=== PATIENT | female | born 1950 | race Caucasian/White ===

== ENCOUNTER 2023-09-10 12:05 | Outpatient (RCR) | payer MEDICARE, OTHER, SELFPAY | END 2023-09-10 23:59 | disposition home or self-care (01) | LOC: RPT 12:05 | PROVIDERS: ATTENDING PHYSICIAN Family Medicine | DX: N39.3 Stress incontinence (female) (male) (principal); N39.44 Nocturnal enuresis; K59.00 Constipation, unspecified; M62.89 Other specified disorders of muscle; Z73.6 Limitation of activities due to disability | CPT/HCPCS: 97110; 97112; 97140; 97530 ==

== ENCOUNTER 2023-10-22 12:14 | Outpatient (RCR) | payer MEDICARE, OTHER, SELFPAY | END 2023-10-22 23:59 | disposition home or self-care (01) | LOC: RPT 12:14 | PROVIDERS: ATTENDING PHYSICIAN Family Medicine | DX: N39.3 Stress incontinence (female) (male) (principal); N39.44 Nocturnal enuresis; K59.00 Constipation, unspecified; M62.89 Other specified disorders of muscle | CPT/HCPCS: 97112; 97140; 97530 ==

== ENCOUNTER → 2023-10-30 13:42 | Outpatient (REF) | payer MEDICARE, OTHER, SELFPAY | LOC: HWRAD 13:42 | PROVIDERS: ATTENDING PHYSICIAN Surgery; FAMILY PHYSICIAN Family Medicine | DX: R10.84 Generalized abdominal pain (principal) | CPT/HCPCS: 74177; Q9967 ==

== ENCOUNTER 2023-11-27 12:53 | Outpatient (RCR) | payer MEDICARE, OTHER, SELFPAY | END 2023-11-27 23:59 | disposition home or self-care (01) | LOC: RPT 12:53 | PROVIDERS: ATTENDING PHYSICIAN Family Medicine | DX: N39.3 Stress incontinence (female) (male) (principal); N39.44 Nocturnal enuresis; K59.00 Constipation, unspecified; M62.89 Other specified disorders of muscle; Z73.6 Limitation of activities due to disability | CPT/HCPCS: 97014; 97140; 97530 ==

== ENCOUNTER 2023-12-18 13:08 | Outpatient (RCR) | payer MEDICARE, OTHER, SELFPAY | END 2023-12-18 23:59 | disposition home or self-care (01) | LOC: RPT 13:08 | PROVIDERS: ATTENDING PHYSICIAN Family Medicine | DX: N39.3 Stress incontinence (female) (male) (principal); N39.44 Nocturnal enuresis; K59.00 Constipation, unspecified; M62.89 Other specified disorders of muscle; Z73.6 Limitation of activities due to disability | CPT/HCPCS: 97014; 97112; 97140; 97530 ==

== ENCOUNTER 2024-01-24 12:02 | Outpatient (RCR) | payer MEDICARE, OTHER, SELFPAY | END 2024-01-24 23:59 | disposition home or self-care (01) | LOC: RPT 12:02 | PROVIDERS: ATTENDING PHYSICIAN Family Medicine | DX: N39.44 Nocturnal enuresis (principal); M62.89 Other specified disorders of muscle; K59.00 Constipation, unspecified; Z73.6 Limitation of activities due to disability | CPT/HCPCS: 97112; 97140; 97530 ==

== ENCOUNTER 2024-02-21 12:33 | Outpatient (RCR) | payer MEDICARE, OTHER, SELFPAY | END 2024-02-21 23:59 | disposition home or self-care (01) | LOC: RPT 12:33 | PROVIDERS: ATTENDING PHYSICIAN Family Medicine | DX: N39.3 Stress incontinence (female) (male) (principal); K59.00 Constipation, unspecified; N39.44 Nocturnal enuresis; M62.89 Other specified disorders of muscle; Z73.6 Limitation of activities due to disability | CPT/HCPCS: 97530 ==

== ENCOUNTER → 2024-03-06 15:34 | Outpatient (REF) | payer MEDICARE, OTHER, SELFPAY | LOC: WDC 15:34 | PROVIDERS: ATTENDING PHYSICIAN Obstetrics & Gynecology; FAMILY PHYSICIAN Family Medicine | DX: Z12.31 Encounter for screening mammogram for malignant neoplasm of breast (principal) | CPT/HCPCS: 77063; 77067 ==

== ENCOUNTER → 2024-05-19 07:05 | Outpatient (REF) | payer MEDICARE, OTHER, SELFPAY ==
[2024-05-19 09:41] LABS: % Basophils 0.6 % (0-2); % Eosinophils 3.2 % (0-6); % Immature Granulocytes 0.3 % (0-0.5); % Lymphocytes 25.9 % (20.5-51.1); Absolute Eosinophils 0.2 10^3/uL (0-0.7); Absolute Lymphocytes 1.6 10^3/uL (1.2-3.4); Absolute Monocytes 0.7 10^3/uL (0.1-0.6); Absolute Neutrophils 3.7 10^3/uL (1.4-6.5); Mean Corp Hgb Conc. 34.3 g/dL (33.0-37.0); Mean Corpuscular Hgb 32.1 pg (27.0-31.0); Mean Corpuscular Volume 93.6 fL (81.0-99.0); Mean Platelet Volume 9.8 fL (7.4-10.4); Nucleated Red Blood Cells % 0 %; Platelet Count 270 10^3/uL (130-400); Red Blood Cell Count 3.74 10^6/uL (4.20-5.40); Red Cell Dist. Width 13.2 % (11.5-14.5); White Blood Cell Count 6.3 10^3/uL (4.8-10.8)
[2024-05-19 10:16] LABS: ALT (SGPT) 25 U/L (0-35); AST (SGOT) 28 U/L (14-36); Albumin 3.9 g/dl (3.5-5.0); Alkaline Phosphatase 81 U/L (38-126); Blood Urea Nitrogen 14 mg/dl (7-17); Calcium 9.3 mg/dl (8.4-10.2); Carbon Dioxide 25 mmol/L (22-30); Chloride 106 mmol/L (98-107); Glucose 89 mg/dl (70-99); HDL Cholesterol 82 mg/dl; LDL Cholesterol, Calculated 82 mg/dl; Potassium 4.2 mmol/L (3.5-5.1); Sodium 139 mmol/L (135-145); Total Bilirubin 0.7 mg/dl (0.2-1.3); Total Cholesterol 177 mg/dl (50-199); Total Protein 6.1 g/dl (6.3-8.2); Triglyceride 66 mg/dl (10-149); Very Low Density Lipoprotein 13 mg/dl (0-30); eGFR > 60.00
[2024-05-19 10:43] LABS: TSH Reflex To Free T4 0.86 uIU/ml (0.47-4.68)
== END ==
LOC: REG 07:05
PROVIDERS: ATTENDING PHYSICIAN Family Medicine
DX: E03.9 Hypothyroidism, unspecified (principal); E78.5 Hyperlipidemia, unspecified; R53.83 Other fatigue
CPT/HCPCS: 36415; 80053; 80061; 84443; 85025

== ENCOUNTER → 2024-06-17 10:33 | Outpatient (REF) | payer MEDICARE, OTHER, SELFPAY | LOC: RAD 10:33 | PROVIDERS: ATTENDING PHYSICIAN Family Medicine | DX: Z78.0 Asymptomatic menopausal state (principal) | CPT/HCPCS: 77080 ==

== ENCOUNTER 2025-02-05 08:08 | Emergency (ER) | payer MEDICARE, OTHER, SELFPAY ==
[2025-02-05 08:20] VITALS: BP 144/92
--- NOTE | 2025-02-05 08:44 | ED.GENMED ---
History of Present Illness
General
Chief Complaint: Musculo-Skeletal Complaint
Source: patient
Exam Limitations: none
Time Seen by Provider: 02/05/25 08:38
Nursing documentation reviewed up to this point in time: agreed with
History of Present Illness
History of Present Illness:
Patient is a 74-year-old female who presents to the ER for evaluation. Patient noticed swelling to right inner ankle last night. She reports 2 days ago she got back from a very long trip to [facility]. She reports it was approximately 13-14-hour
flight. She denies any actual injury. She does feel the area is sore however the swelling is better compared to yesterday. She was concerned about DVT. She denies any fever chills redness.
Past History
Past History
ED Past Medical History: Other (Chronic lung disease)
ED Past Surgical History: Tonsilectomy and Other (left breast benign lesion resected 1994, herniorrhaphy 2003, eyelid surgery 2020)
Social History
Tobacco: Non-smoker
Alcohol: None
Drug: None
Personal:
Living: with family
Family History
Family History: Other (reviewed and non-contributory)
Review of Systems
Review of Systems
Allergies reviewed?: Yes
All Other Systems: ROS reviewed and negative except as documented in HPI and ROS
Constitutional: Reports no symptoms
Respiratory: Reports no symptoms; Denies trouble breathing
Musculoskeletal: Reports other (right lower leg discomfort/swelling )
Skin: Reports no symptoms
Psychiatric: Reports no symptoms
Phy Exam
General Physical Exam
General Presentation: no apparent distress
General age: appears stated age
General Skin: warm and dry
General Habitus: normal
General Mental: alert
General Hydration: appears well hydrated
Neurological Exam
Neurological Exam: alert and oriented x3
Musculoskeletal Exam
Musculoskeletal Exam: full ROM and other (No obvious swelling to right lower leg + strong pulses no erythema or redness no calf tenderness )
Skin Exam
Skin Exam: normal color and warm/dry
Psychiatric Exam
Psychiatric Exam: normal mood/affect
Course
Orders/Labs/Results
Orders:
Orders
02/05/25 08:56
Venous Doppler Lwr Ext Rt [US Periph Venous LOWER Ext RT] Urgent
Comment:
Reason For Exam: pain/swelling
Vital Signs
Initial and Last Documented VS:
Initial Vital Signs
Pulse Resp BP Pulse Ox
90 18 144/92 96
02/05/25 08:20 02/05/25 08:20 02/05/25 08:20 02/05/25 08:20
Last Documented Vital Signs
Pulse Resp BP Pulse Ox
90 18 144/92 96
02/05/25 08:20 02/05/25 08:20 02/05/25 08:20 02/05/25 08:20
MDM/Problems Addressed
Differential Diagnosis Includes:
Not limited to DVT, dependent edema
MDM/Problems Addressed:
Patient is a 74-year-old female who presents with complaints of lower extremity swelling. Patient noticed swelling to the right ankle area. She recently was traveling a very long flight. On exam she has no obvious swelling. No evidence of
infection no erythema or tenderness.
Patient denies any fevers ultrasound negative for DVT possible dependent edema that has since resolved discussed close outpatient follow-up with family doctor to ensure that symptoms continue to be resolved.
*Radiology
Radiology exam reviewed: radiology read reviewed
*Pulse Oximetry
Patient hypoxic: no
*Critical Care Note
Total Time (30-74mins, 75-104mins- exclusive of procedures): Not Applicable
ED Attending Note
-
Portions of this chart may have been created with voice recognition software.� Occasional wrong word or��sound alike� substitutions may have occurred due to the inherent limitations of voice recognition software.
Discharge Plan
Departure
Patient Disposition: Home (Routine Discharge)
Date of Disposition: 02/05/25
Time of Disposition: 11:47
Patient with high blood pressure during this ER visit?: Yes
Condition: Fair
Covid-19: Not Applicable
Discharge Problem:
Leg swelling
Instructions: BLOOD PRESSURE
Prescriptions:
No Action
calcium carbonate [Calcium 600] 600 MG tablet
1,200 mg PO DAILY
montelukast 10 MG tablet
10 mg PO QPM
levothyroxine 88 MCG tablet
88 mcg PO DAILY
desloratadine [Clarinex] 5 MG tablet
5 mg PO DAILY
simvastatin 20 MG tablet
20 mg PO DAILY
omeprazole 20 MG capsule,delayed release(DR/EC)
20 mg PO DAILY
magnesium oxide 500 MG capsule
500 mg PO QPM
rizatriptan 10 MG tablet,disintegrating
10 mg PO PRN PRN (Reason: migraines)
albuterol sulfate 1 PUFF HFA aerosol inhaler
2 puff inhalation R Q6HPRN PRN (Reason: asthma)
Patient Comments:
pt states she hasn't used in months
fluticasone propionate 1 SPRAY spray,suspension
1 spray intranasal DAILY
fluticasone furoate-vilanterol [Breo Ellipta] 1 EACH blister with device
1 puff inhalation R DAILY Qty: 0
prednisone 10 MG tablet
10 mg PO .TAPER
Patient Comments:
11/23/2021: 5 tabs x 2 days, 4 tabs x 2 days, 3 tabs x 2 days, 2 tabs x 2 days, 1 tab x 2 days
doxycycline hyclate 100 MG capsule
100 mg PO Q12
albuterol sulfate 2.5 MG/3 ML solution for nebulization
2.5 mg inhalation R Q4HPRN PRN (Reason: sob/wheezing)
sodium chloride [NebuSal] 4 ML solution for nebulization
4 ml inhalation R BID
Referrals:
Steffanie Solomon MD [Family Provider] -
Activity Restrictions/Additional Instructions:
As discussed your ultrasound was negative for DVT. There is no evidence of infection on exam.
Keep elevated as much as possible.
follow-up with your family doctor in the next several days for reevaluation of your symptoms .
return if any worsening of symptoms
Interventions
Interventions:
*Risk Screen - Suicide Last Done: 02/05/25 08:20
*General Assessment Last Done: 02/05/25 08:20
*Neglect/Abuse Screening Last Done: 02/05/25 08:20
Discharge Date and Time
Print Language: EMIRATI
== END 2025-02-05 12:39 | disposition home or self-care (01) ==
LOC: EMR 08:08
PROVIDERS: EMERGENCY PHYSICIAN Emergency Medicine; FAMILY PHYSICIAN Family Medicine
DX: R22.41 Localized swelling, mass and lump, right lower limb (principal); J98.4 Other disorders of lung
CPT/HCPCS: 99284; 93971

== ENCOUNTER → 2025-03-17 13:28 | Outpatient (REF) | payer MEDICARE, OTHER, SELFPAY | LOC: WDC 13:28 | PROVIDERS: ATTENDING PHYSICIAN Family Medicine | DX: Z12.31 Encounter for screening mammogram for malignant neoplasm of breast (principal); Z12.39 Encounter for other screening for malignant neoplasm of breast | CPT/HCPCS: 77063; 77067 ==

== ENCOUNTER → 2025-04-29 14:38 | Outpatient (REF) | payer MEDICARE, OTHER, SELFPAY | LOC: CLAB 14:38 | PROVIDERS: ATTENDING PHYSICIAN Otolaryngology | DX: J32.8 Other chronic sinusitis (principal) | CPT/HCPCS: 87070; 87205 ==

== ENCOUNTER → 2025-07-08 07:11 | Outpatient (REF) | payer MEDICARE, OTHER, SELFPAY ==
[2025-07-08 07:39] LABS: Hematocrit 38.3 % (37.0-47.0); Hemoglobin 12.6 g/dL (12.0-16.0); Mean Corp Hgb Conc. 32.9 g/dL (33.0-37.0); Mean Corpuscular Volume 94.3 fL (81.0-99.0); Nucleated Red Blood Cells % 0 %; Platelet Count 296 10^3/uL (130-400); Red Cell Dist. Width 12.7 % (11.5-14.5)
[2025-07-08 07:59] LABS: ALT (SGPT) 18 U/L (0-35); AST (SGOT) 22 U/L (14-36); Albumin 4.3 g/dl (3.5-5.0); Alkaline Phosphatase 70 U/L (38-126); Blood Urea Nitrogen 10 mg/dl (7-17); Calcium 9.6 mg/dl (8.4-10.2); Carbon Dioxide 32 mmol/L (22-30); Chloride 105 mmol/L (98-107); Glucose 97 mg/dl (70-99); HDL Cholesterol 85 mg/dl; LDL Cholesterol, Calculated 104 mg/dl; Potassium 4.7 mmol/L (3.5-5.1); Sodium 141 mmol/L (135-145); Total Protein 7.0 g/dl (6.3-8.2); Very Low Density Lipoprotein 12 mg/dl (0-30); eGFR > 60.00
== END ==
LOC: REG 07:11
PROVIDERS: ATTENDING PHYSICIAN Family Medicine
DX: E03.9 Hypothyroidism, unspecified (principal); E78.5 Hyperlipidemia, unspecified; R53.83 Other fatigue
CPT/HCPCS: 36415; 80053; 80061; 84443; 85025

== ENCOUNTER → 2025-07-27 07:24 | Outpatient (REF) | payer MEDICARE, OTHER, SELFPAY | LOC: HWRAD 07:24 | PROVIDERS: ATTENDING PHYSICIAN Family Medicine | DX: R14.0 Abdominal distension (gaseous) (principal) | CPT/HCPCS: 76700 ==

== ENCOUNTER → 2025-08-18 08:28 | Outpatient (REF) | payer MEDICARE, OTHER, SELFPAY | LOC: HWRAD 08:28 | PROVIDERS: ATTENDING PHYSICIAN Family Medicine | DX: R14.0 Abdominal distension (gaseous) (principal) | CPT/HCPCS: 76830; 76856 ==

== ENCOUNTER → 2025-09-10 09:17 | Outpatient (REF) | payer MEDICARE, OTHER, SELFPAY | LOC: WDC 09:17 | PROVIDERS: ATTENDING PHYSICIAN Family Medicine | DX: M79.89 Other specified soft tissue disorders (principal) | CPT/HCPCS: 76642; 77061; 77065 ==